=== PATIENT | male | born 1970 | race Caucasian/White ===

== ENCOUNTER 2017-03-27 12:15 | Inpatient (IN) | payer MEDICAID ==
[2017-03-27] MEDS ORDERED: NS 1000 ML 1,000 ML IV ONE ×2 (12:25→15:35)
--- NOTE | 2017-03-27 12:46 | DR.GENAD ---
HPI - PCP Primary Care Physician: MARBELLA - HPI Comment HPI Comment: PATIENT SAID HE FELL OFF THE BED. HE IS COMPLAING OF HEADACHE. WHILE PUTTING VENTURA IN PATIENT. SCOTUM SWOLLEN AND RED. RELATIVES SAID HE IS SLEEPY TODAY. NOT DRINKING FLUIDS AND EATING POORLY. FEVER NOTED AT HOME. - Complaint/Symptoms Chief Complaint Doctors Comments: AMS, FALLING AND WEAKNESS TIMES 2 DAYS. Chief Complaint:: PTS FAMILY C/O PT SLEEPING ALL THE TIME , AND FALLING DOWN AND SLOBBERING". - Nurses notes reviewed Nurses Notes Review: Yes - Source History Provided: Patient, Family Member - Mode of Arrival Mode of Arrival: Wheelchair - Timing Onset of Chief Complaint: 03/25/17 Came on: Suddenly - Duration Duration: Constant Duration: Days - Severity Severity: Moderate PMH - PMH Past Medical History: Yes Past Medical History: Hypertension, Seizures Past Surgical History: No - Family History History of Family Medical Conditions: Yes Family Medical History: Cancer - Social History Does patient currently use any type of tobacco product: No Have you used tobacco products in the last 12 months: No Type of Tobacco Use: None Does any household member use tobacco: No Alcohol Use: None Do you use any recreational Drugs:: No Lives With: Family Lives Where: Home - infectious screening In the last 2 months have you had wt loss of >10#?: NO Have you had fever, night sweats or hemotysis?: No Have you traveled outside the country in the last 6 months?: No Isolation: Standard ROS - Review of Systems Constitutional: Fever (AT HOME.), Weakness, Fatigue, Loss of Appetite. negative : Chills Eyes: No Symptoms Reported. negative: Eye Pain, Discharge ENTM: negative: Ear Pain, Nose Discharge, Nose Congestion, Throat Pain Respiratoy: Non-Productive Cough, Short of Breath, Wheezing. negative: Hemoptysis Gastrointestinal/Abdominal: No Symptoms Reported. negative: Abdominal Pain, Nausea, Vomiting Genitourinary: Pain (SCOTUM WITH REDNESS.), Other (DECRESE URINE OUT PUT.) Neurological: Headache, Weakness, Dizziness Musculoskeletal: Muscle Pain Integumentary: Change in Color Hematologic/Lymphatic: Easy Bruising Endocrine: No Symptoms Reported All Other Systems: Reviewed and Negative Unable to Obtain Due To: Altered mental status PE - Vital Signs Vitals: Temperature 97.6 F Pulse Rate 132 Respiratory Rate 20 Blood Pressure 117/70 O2 Sat by Pulse Oximetry 97 - General Limitations: Altered Mental Status General Appearance: Alert - Head Head Exam: Normal Inspection - Eyes Eye exam: Normal Appearance - ENT ENT Exam: Normal External Ear Exam External Ear Exam: Normal External Inspection TM/Canal Exam: Bilateral Normal Nose Exam: Normal Nose Exam Mouth Exam: Normal Inspection Throat Exam: Normal Inspection - Neck Neck Exam: Trachea Midline - Chest Chest Inspection: Symmetric Chest Wall Rise - Respiratory Respiratory Exam: Normal Lung Sounds Bilat Respiratory Exam: Bilateral Wheezing, Bilateral Rhonchi, Lower Wheezing, Lower Rhonchi - Cardiovascular Cardiovascular Exam: Regular Rate, Normal Rhythm, Normal Heart Sounds - Abdominal Exam Abdominal Exam: Normal Bowel Sounds, Soft. negative: Tenderness Abdominal Tenderness: Other (SCOTUM ENLARGE, RED AND TENDER.) - Extremities Extremities Exam: Normal Inspection - Back Back Exam: Paraspinal Tenderness - Neurologic Neurological Exam: Alert - Psychiatric Psychiatric Exam: Flat Affect - Skin Skin Exam: Warm, Dry MDM - Additional Information Additional Information Obtained From: Family - Differential Diagnosis Differential Diagnosis: SCOTAL CELLULITIS, HYDROCELE, AMS, PNEUMONIA, UTI Course - Treatment Treatment: SEE ORDERS. - Consultation Consultation Comments: DISCUSS PATIENT WITH DR. TYSON. HE WILL ADMIT PATIENT. - Education/Counseling Education/Counseling: Patient, Family, Education Educated On: Diagnosis ROR - Labs Reviewed Laboratory Results Reviewed?: Yes Result Diagrams: 03/28/17 04:45 03/28/17 04:45 Laboratory: WBC 24.2 X10^3/uL (3.6-10.0) H* 03/27/17 13:00 RBC 3.96 X10^6/uL (4.7-6.0) L 03/27/17 13:00 Hgb 12.7 g/dL (13.5-18.0) L 03/27/17 13:00 Hct 37.4 % (42.0-54.0) L 03/27/17 13:00 MCV 94.4 fL (80.0-100.0) 03/27/17 13:00 MCH 32.0 pg (27.0-34.0) 03/27/17 13:00 MCHC 33.9 g/dL (33.0-35.0) 03/27/17 13:00 RDW 13.6 % (11.6-16.5) 03/27/17 13:00 Plt Count 90 X10^3/uL (150.0-450.0) L 03/27/17 13:00 Plt Count Comment Decreased (ADEQUATE) 03/27/17 13:00 MPV 8.2 fL (7.4-11.0) 03/27/17 13:00 Neut % 71.8 % (42.0-75.0) 03/27/17 13:00 Lymph % 8.5 % (21.0-51.0) L 03/27/17 13:00 [place] % 19.5 % (0.0-13.0) H 03/27/17 13:00 Eos % 0.0 % (0.9-2.9) L 03/27/17 13:00 Baso % 0.2 % (0.2-1.0) 03/27/17 13:00 Neut # 17.4 x10^3/uL (2.2-4.8) H 03/27/17 13:00 Lymph # 2.0 X10^3/uL (1.3-2.9) 03/27/17 13:00 [place] # 4.7 x10^3/uL (0.3-0.8) H 03/27/17 13:00 Eos # 0.0 x10^3/uL (0.0-0.2) 03/27/17 13:00 Baso # 0.0 X10^3/uL (0.0-0.1) 03/27/17 13:00 Absolute Nucleated RBC 0.0 /100WBC 03/27/17 13:00 Total Counted 100 03/27/17 13:00 Neutrophils % (Manual) 64 % (39-76) 03/27/17 13:00 Band Neutrophils % 16 % (0-10) H 03/27/17 13:00 Lymphocytes % (Manual) 13 % (13-43) 03/27/17 13:00 Monocytes % (Manual) 7 % (4-9) 03/27/17 13:00 Atypical Lymphocytes Noted 03/27/17 13:00 Plt Morphology Comment Normal (NORMAL) 03/27/17 13:00 RBC Morphology Normal (NORMAL) 03/27/17 13:00 Sodium 143 mmol/L (136-145) 03/27/17 13:00 Corrected Sodium 143 mmol/L (136-145) 03/27/17 13:00 Potassium 3.9 mmol/L (3.5-5.1) 03/27/17 13:00 Chloride 108 mmol/L (98-107) H 03/27/17 13:00 Carbon Dioxide 24.5 mmol/L (21-32) 03/27/17 13:00 BUN 22 mg/dL (7-18) H 03/27/17 13:00 Creatinine 1.36 mg/dL (0.70-1.30) H 03/27/17 13:00 Est GFR (MDRD) Af Amer > 60 (>60) 03/27/17 13:00 Est GFR (MDRD) Non-Af > 60 (>60) 03/27/17 13:00 Glucose 113 mg/dL (65-99) H 03/27/17 13:00 Lactic Acid 1.8 mmol/L (0.4-2.0) 03/27/17 13:40 Calcium 9.1 mg/dL (8.5-10.1) 03/27/17 13:00 Corrected Calcium 10.2 mg/dL (8.5-10.1) H 03/27/17 13:00 Total Bilirubin 0.80 mg/dL (0.2-1.0) 03/27/17 13:00 AST 16 Units/L (15-37) 03/27/17 13:00 ALT 10 Units/L (12-78) L 03/27/17 13:00 Alkaline Phosphatase 58 Units/L (46-116) 03/27/17 13:00 Creatine Kinase 177 Units/L (39-308) 03/27/17 13:00 CK-MB (CK-2) 1.6 ng/mL (0-4.0) 03/27/17 13:00 CK/CKMB % Calc 0.9 % (<4) 03/27/17 13:00 Troponin I < 0.02 ng/mL (0-1.5) 03/27/17 13:00 Total Protein 6.9 g/dL (6.4-8.2) 03/27/17 13:00 Albumin 2.6 g/dL (3.4-5.0) L 03/27/17 13:00 Globulin 4.3 g/dL (2.5-4.5) 03/27/17 13:00 Albumin/Globulin Ratio 0.6 Ratio (1.1-2.1) L 03/27/17 13:00 Specimen Type Catherized urine 03/27/17 15:28 Urine Color [place] (YELLOW) 03/27/17 15:28 Urine Appearance Slightly hazy (CLEAR) 03/27/17 15:28 Urine RBC 50-55 /HPF (NEGATIVE) 03/27/17 15:28 Urine WBC 12-16 /HPF (NEGATIVE) 03/27/17 15:28 Ur Squamous Epith Cells Few /HPF (NEGATIVE) 03/27/17 15:28 Ur Renal Epithelial Cell Few /HPF (NEGATIVE) 03/27/17 15:28 Amorphous Sediment Trace /HPF (NEGATIVE) 03/27/17 15:28 Urine Bacteria Trace /HPF (Negative) 03/27/17 15:28 Hyaline Casts Moderate /LPF (NEGATIVE) 03/27/17 15:28 Micro UA Comment Unable to perform (-) 03/27/17 15:28 - XRAY XRAY Interpreted by: Radiologist XRAY Findings: REPORT DISCUSS WITH FAMILY AND PATIENT. - EKG Rhythm: NSR (EKG NOTED.) - Diagnosis Discharge Problem: UTI (urinary tract infection) Qualifiers: Urinary tract infection type: site unspecified Hematuria presence: without hematuria Qualified Code(s): N39.0 - Urinary tract infection, site not specified Altered mental status Qualifiers: Altered mental status type: transient alteration of awareness Qualified Code(s) : R40.4 - Transient alteration of awareness Cellulitis Qualifiers: Site of cellulitis: other site Qualified Code(s): L03.818 - Cellulitis of other sites Leukocytosis Qualifiers: Leukocytosis type: other Qualified Code(s): D72.828 - Other elevated white blood cell count - Discharge Plan Disposition: ADMITTED INPATIENT Condition: Stable - Follow ups/Referrals - Instructions
[2017-03-27] MEDS ORDERED: NS 1000 ML 1,000 ML ONE (12:54)
[2017-03-27 13:13] LABS: BASOPHILS % (AUTO) 0.2 % (0.2-1.0); HEMATOCRIT 37.4 % (42.0-54.0); HEMOGLOBIN 12.7 g/dL (13.5-18.0); LYMPHOCYTES % (AUTO) 8.5 % (21.0-51.0); MEAN CORPUSCULAR HGB CONC 33.9 g/dL (33.0-35.0); MEAN CORPUSCULAR VOLUME 94.4 fL (80.0-100.0); MEAN PLATELET VOLUME 8.2 fL (7.4-11.0); MONOCYTES # (AUTO) 4.7 x10^3/uL (0.3-0.8); MONOCYTES % (AUTO) 19.5 % (0.0-13.0); NEUTROPHILS # (AUTO) 17.4 x10^3/uL (2.2-4.8); NEUTROPHILS % (AUTO) 71.8 % (42.0-75.0); PLATELET COUNT 90 X10^3/uL (150.0-450.0); RED BLOOD COUNT 3.96 X10^6/uL (4.7-6.0); RED CELL DISTRIBUTION WIDTH 13.6 % (11.6-16.5)
[2017-03-27 13:14] LABS: WHITE BLOOD COUNT 24.2 X10^3/uL (3.6-10.0)
[2017-03-27 13:21] LABS: BLOOD UREA NITROGEN 22 mg/dL (7-18); CALCIUM 9.1 mg/dL (8.5-10.1); CARBON DIOXIDE 24.5 mmol/L (21-32); CHLORIDE 108 mmol/L (98-107); COR NA(FOR HYPERGLY) 143 mmol/L (136-145); CREATININE 1.36 mg/dL (0.70-1.30); GLUCOSE 113 mg/dL (65-99); SODIUM 143 mmol/L (136-145); TROPONIN I < 0.02 ng/mL (0-1.5); eGFR BLACK RACES > 60 (>60); eGFR NON BLACK RACES > 60 (>60)
[2017-03-27 13:26] LABS: ALANINE AMINOTRANSFERASE 10 Units/L (12-78); ALBUMIN 2.6 g/dL (3.4-5.0); ALKALINE PHOSPHATASE 58 Units/L (46-116); ASPARTATE AMINO TRANSFERASE 16 Units/L (15-37); CKMB % 0.9 % (<4); COR CA(FOR HYPOALB) 10.2 mg/dL (8.5-10.1); CREATINE KINASE 177 Units/L (39-308); CREATINE KINASE MB 1.6 ng/mL (0-4.0); TOTAL PROTEIN 6.9 g/dL (6.4-8.2)
[2017-03-27 13:27] LABS: BAND NEUTROPHILS % 16 % (0-10)
[2017-03-27 13:28] LABS: PLATELET MORPHOLOGY COMMENT NORMAL (NORMAL)
[2017-03-27] MEDS: NS 1000 ML 1,000 ML IV SCH ×2 (13:28→22:06)
--- NOTE | 2017-03-27 13:43 | CT ---
CT brain without contrast Indication: Altered mental status after fall Comparison: None available Technique: Multiple axial images of the brain were obtained from the skull base to the vertex without administr ation of IV contrast. Coronal and sagittal images were also provided. Radiation dose reduction techniques were performed utilizing adjustment for MA/kVP based on patient body size. Findings: No acute intraparenchymal hemorrhage or mass can be identified. No extra-axial fluid collections ar e seen. No alteration in the attenuation of the brain parenchyma can be identified to suggest acute or subacute ischemic change. The ventricular system is symmetric and nondilated. The extracranial structures are grossly unremarkable. IMPRESSION: 1. No acute intracranial process is identified. Reported By:
--- NOTE | 2017-03-27 13:43 | RAD ---
Chest, one view Indication: Altered mental status, fall Comparison: 05/03/2011 Findings: The cardiac and mediastinal contours within normal limits for technique and low lung volumes. There is decreased depth of inspiration with interstitial crowding, although no dense infil trate, large effusion, or pneumothorax is identified. No displaced fracture is seen. Impression: No evidence of acute cardiopulmonary disease Reported By:
[2017-03-27 15:58] LABS: AMORPHOUS SEDIMENT,UR TRACE /HPF (NEGATIVE); APPEARANCE,URINE SLIGHTLY HAZY (CLEAR); COLOR,URINE ORANGE (YELLOW); RBC,URINE 50-55 /HPF (NEGATIVE); SQUAMOUS EPITHELIAL CELL,UR FEW /HPF (NEGATIVE)
[2017-03-27 15:59] LABS: BACTERIA,URINE Trace /HPF (Negative); HYALINE CASTS, URINE MODERATE /LPF (NEGATIVE); RENAL EPITHELIAL CELLS,URINE FEW /HPF (NEGATIVE)
[2017-03-27] MEDS ORDERED: NS 50 ML IV + SPIKE MINIBAG* 50 ML IV ONE (17:02)
[2017-03-27] MEDS ORDERED: FORTAZ or TAZICEF INJ ONE (17:02)
[2017-03-27] MEDS: FORTAZ or TAZICEF INJ 1 GM in NS 50 ML IV + SPIKE MINIBAG* 50 ML IV SCH (17:12)
--- NOTE | 2017-03-27 17:35 | US ---
HISTORY: Scrotal swelling and pain Study: Testicular sonogram Comparison: None Technique: Multiple booth scale and Doppler images of the right and left testicles were obtained Findings: There is a complex fluid collection surrounding the left testicle and containing diffuse avascular i nternal echoes, likely representing a pyocele versus hematocele. The complex collection measures 6.4 cm x 4.6 cm x 5.9 cm in greatest dimensions. There is suggestion of scrotal wall thickening as wel l as parietal calcification or scrotolith. Therefore , this complex collection could also represent a chronic, complicated hydrocele. The left testicle measures 4.4 cm x 1.6 cm x 2.1 cm. The left test icle is normal in echotexture and demonstrates normal blood flow. No intratesticular mass is identif ied. The left epididymis is not identified. The right testicle is normal in echotexture. The right t esticle is also normal in size, measuring 3.7 cm x 1.8 cm x 1.9 cm. The right epididymis is unremark able. Normal vascularity of the right testicle is noted. IMPRESSION: 1. Large complex collection surrounding the left testicle a containing diffuse internal echoes as w ell as suggestion of left scrotal wall thickening and possible calcification as above. Possible diff erential considerations for this large collection include chronic complex hydrocele, pyocele, and he matocele. Hematoceles can be associated with trauma, torsion, and infarct. However, the left testicl e demonstrates normal echotexture and vascularity. The left epididymis cannot be identified. Reported By:
[2017-03-27] MEDS: DEPAKOTE ER PO SCH (21:08)
[2017-03-27] MEDS: KEPPRA TAB 500 MG PO SCH (21:08)
[2017-03-27] MEDS: TOPAMAX TAB 100 MG PO SCH (21:08)
[2017-03-28] MEDS: FORTAZ or TAZICEF INJ 1 GM in NS 50 ML IV + SPIKE MINIBAG* 50 ML IV SCH ×4 (00:22→21:39)
[2017-03-28] MEDS ORDERED: TYLENOL 325 MG TAB PO PRN (04:22)
[2017-03-28] MEDS: NS 1000 ML 1,000 ML IV SCH ×4 (05:36→21:39)
[2017-03-28 06:08] LABS: ALANINE AMINOTRANSFERASE 7 Units/L (12-78); ALBUMIN 1.9 g/dL (3.4-5.0); ALKALINE PHOSPHATASE 58 Units/L (46-116); ASPARTATE AMINO TRANSFERASE 13 Units/L (15-37); BLOOD UREA NITROGEN 14 mg/dL (7-18); CALCIUM 8.1 mg/dL (8.5-10.1); CARBON DIOXIDE 23.3 mmol/L (21-32); CHLORIDE 113 mmol/L (98-107); COR CA(FOR HYPOALB) 9.8 mg/dL (8.5-10.1); CREATININE 0.83 mg/dL (0.70-1.30); GLUCOSE 101 mg/dL (65-99); SODIUM 145 mmol/L (136-145); TOTAL PROTEIN 5.2 g/dL (6.4-8.2); eGFR BLACK RACES > 60 (>60); eGFR NON BLACK RACES > 60 (>60)
[2017-03-28 06:24] LABS: BASOPHILS % (AUTO) 0.2 % (0.2-1.0); EOSINOPHILS % (AUTO) 0.1 % (0.9-2.9); HEMATOCRIT 28.6 % (42.0-54.0); HEMOGLOBIN 10.1 g/dL (13.5-18.0); LYMPHOCYTES # (AUTO) 1.6 X10^3/uL (1.3-2.9); LYMPHOCYTES % (AUTO) 11.6 % (21.0-51.0); MEAN CORPUSCULAR HEMOGLOBIN 33.1 pg (27.0-34.0); MEAN CORPUSCULAR HGB CONC 35.2 g/dL (33.0-35.0); MEAN CORPUSCULAR VOLUME 94.1 fL (80.0-100.0); MEAN PLATELET VOLUME 8.5 fL (7.4-11.0); MONOCYTES # (AUTO) 1.7 x10^3/uL (0.3-0.8); NEUTROPHILS # (AUTO) 10.1 x10^3/uL (2.2-4.8); NEUTROPHILS % (AUTO) 75.1 % (42.0-75.0); PLATELET COUNT 62 X10^3/uL (150.0-450.0); RED BLOOD COUNT 3.04 X10^6/uL (4.7-6.0); RED CELL DISTRIBUTION WIDTH 13.8 % (11.6-16.5); WHITE BLOOD COUNT 13.4 X10^3/uL (3.6-10.0)
[2017-03-28] MEDS ORDERED: K-RIDER 10 MEQ/NS 100 ML 10 MEQ/100 ML BAG IV PRN (07:25)
[2017-03-28] MEDS ORDERED: POTASSIUM CHLORIDE LIQ 20 MEQ UDC PO PRN (07:25)
[2017-03-28] MEDS ORDERED: K-LYTE EFFERVESCENT PO PRN (07:25)
[2017-03-28] MEDS: SOLU-Medrol 40 MG VIAL IVP SCH ×3 (10:04→21:39)
[2017-03-28] MEDS: ALBUMIN HUMAN 25%- 100ML 100 ML IV SCH (10:04)
[2017-03-28] MEDS: KEPPRA TAB 500 MG PO SCH ×2 (10:06→21:38)
[2017-03-28] MEDS: FOLIC ACID TAB 1 MG PO SCH (10:06)
[2017-03-28] MEDS: TOPAMAX TAB 100 MG PO SCH ×2 (10:06→21:38)
[2017-03-28] MEDS: DEPAKOTE ER PO SCH ×2 (10:06→21:38)
[2017-03-28] MEDS: LEVAQUIN PREMIX IV 750 MG 750 MG/150 ML BAG IV SCH (10:07)
[2017-03-28] MEDS: EUCERIN TOP PRN (10:07)
[2017-03-28] MEDS: TEMOVATE SOLN TOP SCH ×2 (10:07→21:48)
[2017-03-28] MEDS: K-DUR TAB 20 MEQ PO PRN ×2 (10:12→14:04)
[2017-03-28] MEDS: TOPROL XL PO SCH (10:23)
[2017-03-28] MEDS ORDERED: ZOFRAN INJ 4 MG VIAL IVP PRN (11:18)
[2017-03-28 12:47] VITALS: BMI 25.8
--- NOTE | 2017-03-28 16:03 | DR.H&P ---
H&P - History & Physical for Day of: H&P Date: 03/27/17 - Chief Complaint Chief Complaint: FALL, HEADACHE, SCROTAL EDEMA - Allergies Allergies/Adverse Reactions: Allergies Allergy/AdvReac Type Severity Reaction Status Date / Time Aspirin Allergy Verified 07/28/12 13:16 Caffeine Allergy Verified 07/28/12 13:16 - History of Present Illness History of Present Illness: THIS IS A 46 YEAR OLD MALE, WHO IS A PATIENT OF OURS. HE PRESENTS TO THE EMERGENCY ROOM WITH COMPLAINTS OF A FALL AT HOME, HEADACHE, AMS, AND GENERALIZED WEAKNESS. FAMILY AT BEDSIDE AND REPORTS PATIENT HAS BEEN VERY DROWSY AND SLEEPING MORE THAN USUAL. FAMILY REPORTS PATIENT FELL OFF OF A BED AT HOME AND IS NOW COMPLAINING OF A HEADACHE. FAMILY REPORTS PATIENT HAS NOT BEEN EATING OR DRINKING WELL AT HOME. UPON INSERTION OF VENTURA CATHETER, SWELLING AND EDEMA IS NOTED TO SCROTUM. FAMILY REPORTS FEVER AT HOME. LABS AND CT OBTAINED. CBC WNL EXCEPT: WBC 24.2, H/H 12.7/37.4, PLT COUNT 90. CMP WNL EXCEPT: CHL 108, BUN/CREAT 22/1.36, GLUCOSE 113, ALBUMIN 2.6. A URINALYSIS WAS OBTAINED; HOWEVER, A CULTURE WAS UNABLE TO BE PERFORMED DUE TO MEDICATION PATIENT TAKING AT HOME. INFLUENZA NEGATIVE. BRAIN CT REPORTS NO ACUTE INTRACRANIAL PROCESS. CHEST XRAY REPORTS NO EVIDENCE OF ACUTE CARDIOPULMONARY DISEASE. TESTICULAR ULTRASOUND REPORTS LARGE COMPLEX COLLECTION SURROUNDING THE LEFT TESTICLE CONTAINING DIFFUSE INTERNAL ECHOES WELL SUGGESTION OF LEFT SCROTAL WALL THICKENING AND POSSIBLE CALCIFICATION; POSSIBILITY OF CHRONIC COMPLEX HYDROCELE, PYOCELE, OR HEAMTOCELE. BLOOD AND URINE CULTURES OBTAINED. WE WILL ADMIT PATIENT FOR FURTHER TREATMENT AND EVALUATION. WE WILL START IV FORTAZ, IV FLUIDS, AND CONTINUE TO MONITOR. - Past Medical History Past Medical History: Anxiety, GERD, Hypertension, Seizures Additional Medical History: Vision Deficit, Urinary Tract Infections, Back Pain , Mood Disorders - Past Surgical History Surgical History: Unknown (Per Human Services Worker) - Family History Family Medical History: Cancer, Coronary Artery Disease - Social History Does patient currently use any type of tobacco product: No Have you used tobacco products in the last 12 months: No Type of Tobacco Use: None Does any household member use tobacco: No Alcohol Use: None Drug Use: None - Medications Home Medications: Divalproex Sodium [Divalproex Sodium ER] 3 tab PO BID 07/28/12 Levetiracetam 2 tab PO BID 07/28/12 Topiramate [Topiragen] 1 tab PO BID 07/28/12 Folic Acid [FOLIC ACID TAB 1 MG *] 2 mg PO DAILY 03/27/17 Metoprolol Succinate Ext Rel [TOPROL XL 25 MG *] 25 mg PO DAILY 03/27/17 - Review of Systems Constitutional: Fever, Weakness, Malaise Eyes: No Symptoms Reported. denies: Pain, Vision Change, Conjunctivae Inflammation, Eyelid Inflammation, Redness ENT: No Symptoms Reported. denies: Ear Pain, Ear Discharge, Nose Pain, Nose Discharge, Nose Congestion, Mouth Pain, Mouth Swelling, Throat Pain, Throat Swelling Respiratory: No Symptoms Reported. denies: Cough, Shortness of Breath, Hemoptysis, SOB with Excertion, Pleuritic Pain, Sputum, Wheezing Cardiovascular: No Symptoms Reported. denies: Palpitations, Orthopnea, Paroxysmal Noc. Dyspnea, Edema, Light Headedness Gastrointestinal: No Symptoms Reported. denies: Nausea, Vomiting, Abdominal Pain, Diarrhea, Constipation, Melena, Hematochezia Genitourinary: Dysuria, Frequency. denies: Hematuria Musculoskeletal: Other (Generalized Muscle Weakness). denies: Shoulder Pain, Arm Pain, Back Pain, Hand Pain, Leg Pain, Foot Pain Skin: Wound (Scrotal edema). denies: Lesions, Jaundice, Bruising Neurological: Weakness, Confusion, Other (Headache) - Physical Exam Vital Signs: Temperature 96.6 F Pulse Rate [Apical] 66 Pulse Rate [Right Radial] 102 Respiratory Rate 20 Blood Pressure [Left Arm] 86/54 Blood Pressure [Right Arm] 111/57 O2 Sat by Pulse Oximetry 94 Oriented: Person Eyes: Normal. negative: Blurred Vision, Diplopia, Discharge, Pain, Redness, Photophobia Ear: Normal. negative: Swelling, Ecchymosis, Abrasion, Laceration Nose: Normal. negative: Injected, Discharge, Blood Throat: Normal. negative: Tonsillar Hypertrophy, Red, Exudate Respiratory: Clear Throughout Cardiovascular: Normal. negative: Murmur, Edema : Dysuria, Frequency, Testicular Pain, Other ([place]). negative: Hematuria Auscultation: Bowel Sounds: Decreased. negative: Bruit Palpation: Normal. negative: Spleen Enlarged, Liver Enlarged, Mass Pulsatile Tenderness: Normal. negative: Rebound, Guarding, Rigidity Skin: Decreased [place]. negative: Wound, Bruising, Ecchymosis Musculoskeletal: Instability Psychiatric: Other (Confusion) Mood Description: Calm Speech Pattern: Clear, Inappropriate - Assessment/Plan (1) Cellulitis of scrotum Status: Acute Plan: ADMIT PATIENT, START IV FORTAZ, CONTINUE VENTURA CATHETER, MONITOR CELLULITIS. (2) Altered mental status Qualifiers: Altered mental status type: transient alteration of awareness Coma depth: C Coma timing: C Qualified Code(s): R40.4 - Transient alteration of awareness Status: Acute Plan: START IV FLUIDS, CONTINUE TO MONITOR. (3) Leukocytosis Qualifiers: Leukocytosis type: other Qualified Code(s): D72.828 - Other elevated white blood cell count Status: Acute Plan: START IV FLUIDS, IV FORTAZ, MONITOR. (4) UTI (urinary tract infection) Qualifiers: Urinary tract infection type: site unspecified Hematuria presence: without hematuria Indwelling urinary catheter type: I Encounter type: E Qualified Code(s): N39.0 - Urinary tract infection, site not specified Status: Acute Plan: ABOVE. (5) Hypertension Qualifiers: Hypertension type: essential hypertension Qualified Code(s): I10 - Essential (primary) hypertension Status: Acute (6) Seizures Status: Chronic (7) GERD (gastroesophageal reflux disease) Qualifiers: Esophagitis presence: esophagitis presence not specified Qualified Code(s) : K21.9 - Gastro-esophageal reflux disease without esophagitis Status: Chronic
--- NOTE | 2017-03-28 16:31 | PCM.PROG ---
Progress Note - Progress Note for Day of Date: 03/28/17 - Subjective Subjective: PATIENT CONTINUES WITH SCROTAL CELLULITIS THIS MORNING. SCROTUM IS NOTED WITH WARMTH, ERYTHEMA, AND EDEMA. PATIENT REPORTS PAIN TO AREA. FAMILY MEMBER AT BEDSIDE. 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 CBC WNL EXCEPT: WBC IMPROVED FROM 24.2 TO 13.4, H/H 10.1/28.6, PLT COUNT 62. CMP WNL EXCEPT: POTASSIUM 3.2, CHL 113, GLUCOSE 101, CALCIUM 8.1, TOT PROTEIN 5.2, ALBUMIN 1.9. WE WILL START ALBUMIN IV, LEVAQUIN, SOLUMEDROL, TEMOVATE, AND EUCERIN. WE WILL CONTINUE TO MONITOR CELLULITIS AND FOLLOW UP IN AM WITH LABS. - Past Medical Family Social History Past Med/Fam/Surg Hx: No changes since H&P Allergies: Allergies Aspirin Allergy (Verified 07/28/12 13:16) Caffeine Allergy (Verified 07/28/12 13:16) - Review of Systems ROS: No change since H&P - Vital Signs and I&O's Vital Signs: Temperature 97.5 F Pulse Rate [Apical] 66 Pulse Rate [Right Radial] 62 Respiratory Rate 20 Blood Pressure [Left Arm] 86/54 Blood Pressure [Right Arm] 97/54 O2 Sat by Pulse Oximetry 94 Intake and Output: Intake & Output 03/26/17 03/27/17 03/28/17 03/29/17 11:59 11:59 11:59 11:59 Intake Total 1240 480 Output Total 900 1200 Balance 340 -720 - Physical Exam Oriented: Person Eyes: Normal. negative: Blurred Vision, Diplopia, Discharge, Pain, Redness, Photophobia Ear: Normal. negative: Swelling, Ecchymosis, Abrasion, Laceration Nose: Normal. negative: Injected, Discharge, Blood Throat: Normal. negative: Tonsillar Hypertrophy, Red, Exudate Cardiovascular: Normal. negative: Murmur, Edema : Dysuria, Frequency, Testicular Pain, Other ([place]). negative: Hematuria Auscultation: Bowel Sounds: Decreased. negative: Bruit Palpation: Normal. negative: Spleen Enlarged, Liver Enlarged, Mass Pulsatile Tenderness: Normal. negative: Rebound, Guarding, Rigidity Skin: Decreased Turgur. negative: Wound, Bruising, Ecchymosis Musculoskeletal: Instability Psychiatric: Other (Confusion) Mood Description: Calm Speech Pattern: Clear, Inappropriate - Laboratory and Diagnostics Result Diagrams: 03/28/17 04:45 03/28/17 12:30 Labs: Laboratory WBC 13.4 X10^3/uL (3.6-10.0) H 03/28/17 04:45 RBC 3.04 X10^6/uL (4.7-6.0) L 03/28/17 04:45 Hgb 10.1 g/dL (13.5-18.0) L 03/28/17 04:45 Hct 28.6 % (42.0-54.0) L 03/28/17 04:45 MCV 94.1 fL (80.0-100.0) 03/28/17 04:45 MCH 33.1 pg (27.0-34.0) 03/28/17 04:45 MCHC 35.2 g/dL (33.0-35.0) H 03/28/17 04:45 RDW 13.8 % (11.6-16.5) 03/28/17 04:45 Plt Count 62 X10^3/uL (150.0-450.0) L 03/28/17 04:45 Plt Count Comment Decreased (ADEQUATE) 03/27/17 13:00 MPV 8.5 fL (7.4-11.0) 03/28/17 04:45 Neut % 75.1 % (42.0-75.0) H 03/28/17 04:45 Lymph % 11.6 % (21.0-51.0) L 03/28/17 04:45 [place] % 13.0 % (0.0-13.0) 03/28/17 04:45 Eos % 0.1 % (0.9-2.9) L 03/28/17 04:45 Baso % 0.2 % (0.2-1.0) 03/28/17 04:45 Neut # 10.1 x10^3/uL (2.2-4.8) H 03/28/17 04:45 Lymph # 1.6 X10^3/uL (1.3-2.9) 03/28/17 04:45 [place] # 1.7 x10^3/uL (0.3-0.8) H 03/28/17 04:45 Eos # 0.0 x10^3/uL (0.0-0.2) 03/28/17 04:45 Baso # 0.0 X10^3/uL (0.0-0.1) 03/28/17 04:45 Absolute Nucleated RBC 0.0 /100WBC 03/28/17 04:45 Total Counted 100 03/27/17 13:00 Neutrophils % (Manual) 64 % (39-76) 03/27/17 13:00 Band Neutrophils % 16 % (0-10) H 03/27/17 13:00 Lymphocytes % (Manual) 13 % (13-43) 03/27/17 13:00 Monocytes % (Manual) 7 % (4-9) 03/27/17 13:00 Atypical Lymphocytes Noted 03/27/17 13:00 Plt Morphology Comment Normal (NORMAL) 03/27/17 13:00 RBC Morphology Normal (NORMAL) 03/27/17 13:00 Sodium 145 mmol/L (136-145) 03/28/17 04:45 Corrected Sodium TNP 03/28/17 04:45 Potassium 3.4 mmol/L (3.5-5.1) L 03/28/17 12:30 Chloride 113 mmol/L (98-107) H 03/28/17 04:45 Carbon Dioxide 23.3 mmol/L (21-32) 03/28/17 04:45 BUN 14 mg/dL (7-18) 03/28/17 04:45 Creatinine 0.83 mg/dL (0.70-1.30) 03/28/17 04:45 Est GFR (MDRD) Af Amer > 60 (>60) 03/28/17 04:45 Est GFR (MDRD) Non-Af > 60 (>60) 03/28/17 04:45 Glucose 101 mg/dL (65-99) H 03/28/17 04:45 Lactic Acid 1.8 mmol/L (0.4-2.0) 03/27/17 13:40 Calcium 8.1 mg/dL (8.5-10.1) L 03/28/17 04:45 Corrected Calcium 9.8 mg/dL (8.5-10.1) 03/28/17 04:45 Total Bilirubin 0.30 mg/dL (0.2-1.0) 03/28/17 04:45 AST 13 Units/L (15-37) L 03/28/17 04:45 ALT 7 Units/L (12-78) L 03/28/17 04:45 Alkaline Phosphatase 58 Units/L (46-116) 03/28/17 04:45 Creatine Kinase 177 Units/L (39-308) 03/27/17 13:00 CK-MB (CK-2) 1.6 ng/mL (0-4.0) 03/27/17 13:00 CK/CKMB % Calc 0.9 % (<4) 03/27/17 13:00 Troponin I < 0.02 ng/mL (0-1.5) 03/27/17 13:00 Total Protein 5.2 g/dL (6.4-8.2) L 03/28/17 04:45 Albumin 1.9 g/dL (3.4-5.0) L 03/28/17 04:45 Globulin 3.3 g/dL (2.5-4.5) 03/28/17 04:45 Albumin/Globulin Ratio 0.6 Ratio (1.1-2.1) L 03/28/17 04:45 Specimen Type Catherized urine 03/27/17 15:28 Urine Color [place] (YELLOW) 03/27/17 15:28 Urine Appearance Slightly hazy (CLEAR) 03/27/17 15:28 Urine RBC 50-55 /HPF (NEGATIVE) 03/27/17 15:28 Urine WBC 12-16 /HPF (NEGATIVE) 03/27/17 15:28 Ur Squamous Epith Cells Few /HPF (NEGATIVE) 03/27/17 15:28 Ur Renal Epithelial Cell Few /HPF (NEGATIVE) 03/27/17 15:28 Amorphous Sediment Trace /HPF (NEGATIVE) 03/27/17 15:28 Urine Bacteria Trace /HPF (Negative) 03/27/17 15:28 Hyaline Casts Moderate /LPF (NEGATIVE) 03/27/17 15:28 Micro UA Comment Unable to perform (-) 03/27/17 15:28 Influenza A (H1N1) PCR Not detected (NOT DETECT) 03/27/17 14:30 Influenza Type A (PCR) Negative (NEGATIVE) 03/27/17 14:30 Influenza Type B (PCR) Negative (NEGATIVE) 03/27/17 14:30 - Plan (1) Hematocele Status: Acute Plan: START IV LEVAQUIN, SOLUMEDROL, CONTINUE TO MONITOR. (2) Cellulitis of scrotum Status: Acute Plan: CONTINUE IV FORTAZ, CONTINUE VENTURA CATHETER, MONITOR CELLULITIS. (3) Altered mental status Status: Acute Qualifiers: Altered mental status type: transient alteration of awareness Coma depth: C Coma timing: C Qualified Code(s): R40.4 - Transient alteration of awareness Plan: CONTINUE IV FLUIDS, CONTINUE TO MONITOR. (4) Leukocytosis Status: Acute Qualifiers: Leukocytosis type: other Qualified Code(s): D72.828 - Other elevated white blood cell count Plan: CONTINUE IV FLUIDS, IV FORTAZ, MONITOR. (5) UTI (urinary tract infection) Status: Acute Qualifiers: Urinary tract infection type: site unspecified Hematuria presence: without hematuria Indwelling urinary catheter type: I Encounter type: E Qualified Code(s): N39.0 - Urinary tract infection, site not specified Plan: ABOVE. (6) Hypertension Status: Chronic Qualifiers: Hypertension type: essential hypertension Qualified Code(s): I10 - Essential (primary) hypertension (7) Seizures Status: Chronic (8) GERD (gastroesophageal reflux disease) Status: Chronic Qualifiers: Esophagitis presence: esophagitis presence not specified Qualified Code(s) : K21.9 - Gastro-esophageal reflux disease without esophagitis
[2017-03-29] MEDS: FORTAZ or TAZICEF INJ 1 GM in NS 50 ML IV + SPIKE MINIBAG* 50 ML IV SCH ×3 (05:48→21:53)
[2017-03-29] MEDS: SOLU-Medrol 40 MG VIAL IVP SCH ×3 (05:48→21:54)
[2017-03-29] MEDS: NS 1000 ML 1,000 ML IV SCH ×3 (05:54→21:54)
[2017-03-29 07:00] LABS: ALANINE AMINOTRANSFERASE 10 Units/L (12-78); ALBUMIN 2.1 g/dL (3.4-5.0); ALKALINE PHOSPHATASE 55 Units/L (46-116); ASPARTATE AMINO TRANSFERASE 13 Units/L (15-37); BLOOD UREA NITROGEN 9 mg/dL (7-18); CALCIUM 8.7 mg/dL (8.5-10.1); COR CA(FOR HYPOALB) 10.2 mg/dL (8.5-10.1); COR NA(FOR HYPERGLY) 149 mmol/L (136-145); CREATININE 0.74 mg/dL (0.70-1.30); GLUCOSE 119 mg/dL (65-99); SODIUM 149 mmol/L (136-145); TOTAL PROTEIN 5.5 g/dL (6.4-8.2); eGFR BLACK RACES > 60 (>60); eGFR NON BLACK RACES > 60 (>60)
[2017-03-29 07:01] LABS: BASOPHILS % (AUTO) 0.1 % (0.2-1.0); HEMATOCRIT 29.6 % (42.0-54.0); HEMOGLOBIN 10.4 g/dL (13.5-18.0); LYMPHOCYTES # (AUTO) 0.9 X10^3/uL (1.3-2.9); LYMPHOCYTES % (AUTO) 8.6 % (21.0-51.0); MEAN CORPUSCULAR HEMOGLOBIN 33.2 pg (27.0-34.0); MEAN CORPUSCULAR HGB CONC 35.1 g/dL (33.0-35.0); MEAN CORPUSCULAR VOLUME 94.4 fL (80.0-100.0); MEAN PLATELET VOLUME 8.5 fL (7.4-11.0); MONOCYTES # (AUTO) 0.5 x10^3/uL (0.3-0.8); MONOCYTES % (AUTO) 5.1 % (0.0-13.0); NEUTROPHILS # (AUTO) 9.2 x10^3/uL (2.2-4.8); NEUTROPHILS % (AUTO) 86.2 % (42.0-75.0); PLATELET COUNT 61 X10^3/uL (150.0-450.0); RED BLOOD COUNT 3.14 X10^6/uL (4.7-6.0); RED CELL DISTRIBUTION WIDTH 14.1 % (11.6-16.5); WHITE BLOOD COUNT 10.6 X10^3/uL (3.6-10.0)
[2017-03-29 07:12] LABS: CHLORIDE 117 mmol/L (98-107)
[2017-03-29 08:42] LABS: BAND NEUTROPHILS % 10 % (0-10); PLATELET MORPHOLOGY COMMENT NORMAL (NORMAL)
[2017-03-29] MEDS: ALBUMIN HUMAN 25%- 100ML 100 ML IV SCH (09:25)
[2017-03-29] MEDS: DEPAKOTE ER PO SCH ×2 (09:26→21:52)
[2017-03-29] MEDS: FOLIC ACID TAB 1 MG PO SCH (09:26)
[2017-03-29] MEDS: TOPAMAX TAB 100 MG PO SCH ×2 (09:26→21:53)
[2017-03-29] MEDS: LEVAQUIN PREMIX IV 750 MG 750 MG/150 ML BAG IV SCH (09:26)
[2017-03-29] MEDS: KEPPRA TAB 500 MG PO SCH ×2 (09:26→21:52)
[2017-03-29] MEDS: TEMOVATE SOLN TOP SCH ×2 (09:43→22:09)
[2017-03-29] MEDS: EUCERIN TOP PRN ×2 (09:43→22:09)
[2017-03-29] MEDS: TOPROL XL PO SCH (09:44)
--- NOTE | 2017-03-29 17:20 | PCM.PROG ---
Progress Note - Progress Note for Day of Date: 03/29/17 - Subjective Subjective: PATIENT CONTINUES WITH SCROTAL CELLULITIS THIS MORNING. SCROTUM IS NOTED WITH WARMTH, ERYTHEMA, AND EDEMA. PATIENT REPORTS PAIN TO AREA. FAMILY MEMBER AT BEDSIDE. PATIENT CONTINUES ON IV FORTAZ AND LEVAQUIN FOR SCROTAL CELLULITIS. FINAL URINE CULTURE REPORTS E-COLI WHICH IS SENSITIVE TO FORTAZ. CBC WNL EXCEPT: WBC 10.6, H/H 10.4/29.6, PLT COUNT 61. CMP WNL EXCEPT: SODIUM 149, CHL 117, GLUCOSE 119, TOT PROTEIN 5.5, ALBUMIN 2.1. WE WILL CONTINUE ALBUMIN IV, LEVAQUIN, SOLUMEDROL, TEMOVATE, AND EUCERIN. WE WILL CONTINUE TO MONITOR CELLULITIS AND FOLLOW UP IN AM WITH LABS. - Past Medical Family Social History Past Med/Fam/Surg Hx: No changes since H&P Allergies: Allergies Aspirin Allergy (Verified 07/28/12 13:16) Caffeine Allergy (Verified 07/28/12 13:16) - Review of Systems ROS: No change since H&P - Vital Signs and I&O's Vital Signs: Temperature 97.7 F Pulse Rate [Apical] 44 Pulse Rate [Right Radial] 54 Respiratory Rate 18 Blood Pressure [Left Arm] 86/54 Blood Pressure [Right Arm] 115/72 O2 Sat by Pulse Oximetry 94 Intake and Output: Intake & Output 03/27/17 03/28/17 03/29/17 03/30/17 11:59 11:59 11:59 11:59 Intake Total 1240 1480 1700 Output Total 900 2450 900 Balance 340 -970 800 - Physical Exam Oriented: Person Eyes: Normal. negative: Blurred Vision, Diplopia, Discharge, Pain, Redness, Photophobia Ear: Normal. negative: Swelling, Ecchymosis, Abrasion, Laceration Nose: Normal. negative: Injected, Discharge, Blood Throat: Normal. negative: Tonsillar Hypertrophy, Red, Exudate Respiratory: Normal Cardiovascular: Normal. negative: Murmur, Edema : Dysuria, Frequency, Testicular Pain (Scrotal Cellulitis), Other ([place]). negative: Hematuria Auscultation: Bowel Sounds: Decreased. negative: Bruit Tenderness: Normal. negative: Rebound, Guarding, Rigidity Skin: Decreased Turgur. negative: Wound, Bruising, Ecchymosis Musculoskeletal: Instability Psychiatric: Other (Confusion) Mood Description: Calm Speech Pattern: Unclear - Laboratory and Diagnostics Result Diagrams: 03/29/17 05:04 03/29/17 05:04 Labs: Laboratory WBC 10.6 X10^3/uL (3.6-10.0) H 03/29/17 05:04 RBC 3.14 X10^6/uL (4.7-6.0) L 03/29/17 05:04 Hgb 10.4 g/dL (13.5-18.0) L 03/29/17 05:04 Hct 29.6 % (42.0-54.0) L 03/29/17 05:04 MCV 94.4 fL (80.0-100.0) 03/29/17 05:04 MCH 33.2 pg (27.0-34.0) 03/29/17 05:04 MCHC 35.1 g/dL (33.0-35.0) H 03/29/17 05:04 RDW 14.1 % (11.6-16.5) 03/29/17 05:04 Plt Count 61 X10^3/uL (150.0-450.0) L 03/29/17 05:04 Plt Count Comment Adequate (ADEQUATE) 03/29/17 05:04 MPV 8.5 fL (7.4-11.0) 03/29/17 05:04 Neut % 86.2 % (42.0-75.0) H 03/29/17 05:04 Lymph % 8.6 % (21.0-51.0) L 03/29/17 05:04 [place] % 5.1 % (0.0-13.0) 03/29/17 05:04 Eos % 0.0 % (0.9-2.9) L 03/29/17 05:04 Baso % 0.1 % (0.2-1.0) L 03/29/17 05:04 Neut # 9.2 x10^3/uL (2.2-4.8) H 03/29/17 05:04 Lymph # 0.9 X10^3/uL (1.3-2.9) L 03/29/17 05:04 [place] # 0.5 x10^3/uL (0.3-0.8) 03/29/17 05:04 Eos # 0.0 x10^3/uL (0.0-0.2) 03/29/17 05:04 Baso # 0.0 X10^3/uL (0.0-0.1) 03/29/17 05:04 Absolute Nucleated RBC 0.0 /100WBC 03/29/17 05:04 Total Counted 100 03/29/17 05:04 Neutrophils % (Manual) 83 % (39-76) H 03/29/17 05:04 Band Neutrophils % 10 % (0-10) 03/29/17 05:04 Lymphocytes % (Manual) 6 % (13-43) L 03/29/17 05:04 Monocytes % (Manual) 1 % (4-9) L 03/29/17 05:04 Atypical Lymphocytes Noted 03/27/17 13:00 Plt Morphology Comment Normal (NORMAL) 03/29/17 05:04 RBC Morphology Normal (NORMAL) 03/29/17 05:04 Sodium 149 mmol/L (136-145) H 03/29/17 05:04 Corrected Sodium 149 mmol/L (136-145) H 03/29/17 05:04 Potassium 3.9 mmol/L (3.5-5.1) 03/29/17 05:04 Chloride 117 mmol/L (98-107) H* 03/29/17 05:04 Carbon Dioxide 21.0 mmol/L (21-32) 03/29/17 05:04 BUN 9 mg/dL (7-18) 03/29/17 05:04 Creatinine 0.74 mg/dL (0.70-1.30) 03/29/17 05:04 Est GFR (MDRD) Af Amer > 60 (>60) 03/29/17 05:04 Est GFR (MDRD) Non-Af > 60 (>60) 03/29/17 05:04 Glucose 119 mg/dL (65-99) H 03/29/17 05:04 Lactic Acid 1.8 mmol/L (0.4-2.0) 03/27/17 13:40 Calcium 8.7 mg/dL (8.5-10.1) 03/29/17 05:04 Corrected Calcium 10.2 mg/dL (8.5-10.1) H 03/29/17 05:04 Total Bilirubin 0.20 mg/dL (0.2-1.0) 03/29/17 05:04 AST 13 Units/L (15-37) L 03/29/17 05:04 ALT 10 Units/L (12-78) L 03/29/17 05:04 Alkaline Phosphatase 55 Units/L (46-116) 03/29/17 05:04 Creatine Kinase 177 Units/L (39-308) 03/27/17 13:00 CK-MB (CK-2) 1.6 ng/mL (0-4.0) 03/27/17 13:00 CK/CKMB % Calc 0.9 % (<4) 03/27/17 13:00 Troponin I < 0.02 ng/mL (0-1.5) 03/27/17 13:00 Total Protein 5.5 g/dL (6.4-8.2) L 03/29/17 05:04 Albumin 2.1 g/dL (3.4-5.0) L 03/29/17 05:04 Globulin 3.4 g/dL (2.5-4.5) 03/29/17 05:04 Albumin/Globulin Ratio 0.6 Ratio (1.1-2.1) L 03/29/17 05:04 Specimen Type Catherized urine 03/27/17 15:28 Urine Color [place] (YELLOW) 03/27/17 15:28 Urine Appearance Slightly hazy (CLEAR) 03/27/17 15:28 Urine RBC 50-55 /HPF (NEGATIVE) 03/27/17 15:28 Urine WBC 12-16 /HPF (NEGATIVE) 03/27/17 15:28 Ur Squamous Epith Cells Few /HPF (NEGATIVE) 03/27/17 15:28 Ur Renal Epithelial Cell Few /HPF (NEGATIVE) 03/27/17 15:28 Amorphous Sediment Trace /HPF (NEGATIVE) 03/27/17 15:28 Urine Bacteria Trace /HPF (Negative) 03/27/17 15:28 Hyaline Casts Moderate /LPF (NEGATIVE) 03/27/17 15:28 Micro UA Comment Unable to perform (-) 03/27/17 15:28 Influenza A (H1N1) PCR Not detected (NOT DETECT) 03/27/17 14:30 Influenza Type A (PCR) Negative (NEGATIVE) 03/27/17 14:30 Influenza Type B (PCR) Negative (NEGATIVE) 03/27/17 14:30 - Plan (1) Hematocele Status: Acute Plan: CONTINUE IV LEVAQUIN, FORTAZ, SOLUMEDROL, CONTINUE TO MONITOR. (2) Cellulitis of scrotum Status: Acute Plan: CONTINUE IV FORTAZ, LEVAQUIN, CONTINUE VENTURA CATHETER, MONITOR CELLULITIS. (3) Altered mental status Status: Acute Qualifiers: Altered mental status type: transient alteration of awareness Coma depth: C Coma timing: C Qualified Code(s): R40.4 - Transient alteration of awareness Plan: CONTINUE IV FLUIDS, CONTINUE TO MONITOR. (4) Leukocytosis Status: Acute Qualifiers: Leukocytosis type: other Qualified Code(s): D72.828 - Other elevated white blood cell count Plan: CONTINUE IV FLUIDS, IV FORTAZ, MONITOR. (5) E. coli UTI Status: Acute Plan: CONTINUE FORTAZ, MONITOR. (6) UTI (urinary tract infection) Status: Acute Qualifiers: Urinary tract infection type: site unspecified Hematuria presence: without hematuria Indwelling urinary catheter type: I Encounter type: E Qualified Code(s): N39.0 - Urinary tract infection, site not specified Plan: ABOVE. (7) Hypertension Status: Chronic Qualifiers: Hypertension type: essential hypertension Qualified Code(s): I10 - Essential (primary) hypertension (8) Seizures Status: Chronic (9) GERD (gastroesophageal reflux disease) Status: Chronic Qualifiers: Esophagitis presence: esophagitis presence not specified Qualified Code(s) : K21.9 - Gastro-esophageal reflux disease without esophagitis
[2017-03-29] MEDS: NYSTATIN POWDER TOP SCH ×2 (17:26→22:08)
[2017-03-30] MEDS: SOLU-Medrol 40 MG VIAL IVP SCH ×3 (05:56→21:31)
[2017-03-30] MEDS: FORTAZ or TAZICEF INJ 1 GM in NS 50 ML IV + SPIKE MINIBAG* 50 ML IV SCH ×3 (05:57→21:30)
[2017-03-30] MEDS: NS 1000 ML 1,000 ML IV SCH ×3 (06:04→21:42)
[2017-03-30 06:12] LABS: ALBUMIN 2.1 g/dL (3.4-5.0); BASOPHILS % (AUTO) 0.4 % (0.2-1.0); HEMATOCRIT 28.9 % (42.0-54.0); LYMPHOCYTES # (AUTO) 1.2 X10^3/uL (1.3-2.9); LYMPHOCYTES % (AUTO) 11.6 % (21.0-51.0); MEAN CORPUSCULAR HEMOGLOBIN 33.1 pg (27.0-34.0); MEAN CORPUSCULAR HGB CONC 34.6 g/dL (33.0-35.0); MEAN CORPUSCULAR VOLUME 95.6 fL (80.0-100.0); MEAN PLATELET VOLUME 8.9 fL (7.4-11.0); MONOCYTES # (AUTO) 0.6 x10^3/uL (0.3-0.8); MONOCYTES % (AUTO) 5.4 % (0.0-13.0); NEUTROPHILS # (AUTO) 8.5 x10^3/uL (2.2-4.8); NEUTROPHILS % (AUTO) 82.6 % (42.0-75.0); PLATELET COUNT 68 X10^3/uL (150.0-450.0); RED BLOOD COUNT 3.03 X10^6/uL (4.7-6.0); RED CELL DISTRIBUTION WIDTH 14.3 % (11.6-16.5); WHITE BLOOD COUNT 10.3 X10^3/uL (3.6-10.0); eGFR BLACK RACES > 60 (>60); eGFR NON BLACK RACES > 60 (>60)
[2017-03-30 06:57] LABS: ALANINE AMINOTRANSFERASE 9 Units/L (12-78); ALKALINE PHOSPHATASE 56 Units/L (46-116); ASPARTATE AMINO TRANSFERASE 11 Units/L (15-37); BLOOD UREA NITROGEN 8 mg/dL (7-18); CALCIUM 8.2 mg/dL (8.5-10.1); COR CA(FOR HYPOALB) 9.7 mg/dL (8.5-10.1); CREATININE 0.78 mg/dL (0.70-1.30); GLUCOSE 125 mg/dL (65-99)
[2017-03-30 07:24] LABS: COR NA(FOR HYPERGLY) 148 mmol/L (136-145); SODIUM 147 mmol/L (136-145)
[2017-03-30 07:34] LABS: CHLORIDE 117 mmol/L (98-107)
[2017-03-30 08:09] LABS: BAND NEUTROPHILS % 16 % (0-10); PLATELET MORPHOLOGY COMMENT NORMAL (NORMAL)
[2017-03-30] MEDS: LEVAQUIN PREMIX IV 750 MG 750 MG/150 ML BAG IV SCH (09:34)
[2017-03-30] MEDS: ALBUMIN HUMAN 25%- 100ML 100 ML IV SCH (09:35)
[2017-03-30] MEDS: TOPAMAX TAB 100 MG PO SCH ×2 (09:36→21:30)
[2017-03-30] MEDS: NYSTATIN POWDER TOP SCH ×2 (09:37→21:34)
[2017-03-30] MEDS: FOLIC ACID TAB 1 MG PO SCH (09:37)
[2017-03-30] MEDS: KEPPRA TAB 500 MG PO SCH ×2 (09:37→21:30)
[2017-03-30] MEDS: TEMOVATE SOLN TOP SCH ×2 (09:39→21:35)
[2017-03-30] MEDS: DEPAKOTE ER PO SCH ×2 (09:41→21:30)
[2017-03-30] MEDS ORDERED: DEPAKOTE D.R. TAB PO ONE (11:05)
--- NOTE | 2017-03-30 18:39 | PCM.PROG ---
Progress Note - Progress Note for Day of Date: 03/30/17 - Subjective Subjective: SCROTAL CELLULITIS IS SLOWLY IMPROVING. SCROTUM CONTINUES WITH WARMTH, ERYTHEMA, AND EDEMA. PATIENT REPORTS PAIN TO AREA. FAMILY MEMBER AT BEDSIDE. HEART RATE HAS BEEN IN THE 40'S AND TOPROL HAS BEEN HELD. PATIENT CONTINUES ON IV FORTAZ AND LEVAQUIN FOR SCROTAL CELLULITIS. FINAL URINE CULTURE REPORTS E-COLI WHICH IS SENSITIVE TO FORTAZ. CBC WNL EXCEPT: WBC 10.3, H/H 10.0/28.9, PLT COUNT 68. CMP WNL EXCEPT: SODIUM 147, CHL 117, GLUCOSE 125, TOT PROTEIN 5.0, ALBUMIN 2.1. WE WILL CONTINUE ALBUMIN IV, LEVAQUIN, SOLUMEDROL , TEMOVATE, AND EUCERIN. WE WILL CONTINUE TO MONITOR CELLULITIS AND FOLLOW UP IN AM WITH LABS. - Past Medical Family Social History Past Med/Fam/Surg Hx: No changes since H&P Allergies: Allergies Aspirin Allergy (Verified 07/28/12 13:16) Caffeine Allergy (Verified 07/28/12 13:16) - Review of Systems ROS: No change since H&P - Vital Signs and I&O's Vital Signs: Temperature 97.9 F Pulse Rate [Apical] 41 Pulse Rate [Right Radial] 50 Respiratory Rate 18 Blood Pressure [Left Arm] 86/54 Blood Pressure [Right Arm] 88/59 O2 Sat by Pulse Oximetry 94 Intake and Output: Intake & Output 03/28/17 03/29/17 03/30/17 03/31/17 11:59 11:59 11:59 11:59 Intake Total 1240 1480 4498 1397 Output Total 900 2450 2200 1000 Balance 340 -970 2298 397 - Physical Exam Oriented: Person Eyes: Normal. negative: Blurred Vision, Diplopia, Discharge, Pain, Redness, Photophobia Ear: Normal. negative: Swelling, Ecchymosis, Abrasion, Laceration Nose: Normal. negative: Injected, Discharge, Blood Throat: Normal. negative: Tonsillar Hypertrophy, Red, Exudate Respiratory: Normal Cardiovascular: Normal. negative: Murmur, Edema : Dysuria, Frequency, Testicular Pain (Scrotal Cellulitis), Other ([place]). negative: Hematuria Auscultation: Bowel Sounds: Decreased. negative: Bruit Palpation: Normal Tenderness: Normal. negative: Rebound, Guarding, Rigidity Skin: Decreased Turgur. negative: Wound, Bruising, Ecchymosis Musculoskeletal: Instability Psychiatric: Other (Confusion) Mood Description: Calm Speech Pattern: Appropriate, Unclear - Laboratory and Diagnostics Result Diagrams: 03/30/17 04:20 03/30/17 04:20 Labs: Laboratory WBC 10.3 X10^3/uL (3.6-10.0) H 03/30/17 04:20 RBC 3.03 X10^6/uL (4.7-6.0) L 03/30/17 04:20 Hgb 10.0 g/dL (13.5-18.0) L 03/30/17 04:20 Hct 28.9 % (42.0-54.0) L 03/30/17 04:20 MCV 95.6 fL (80.0-100.0) 03/30/17 04:20 MCH 33.1 pg (27.0-34.0) 03/30/17 04:20 MCHC 34.6 g/dL (33.0-35.0) 03/30/17 04:20 RDW 14.3 % (11.6-16.5) 03/30/17 04:20 Plt Count 68 X10^3/uL (150.0-450.0) L 03/30/17 04:20 Plt Count Comment Decreased (ADEQUATE) 03/30/17 04:20 MPV 8.9 fL (7.4-11.0) 03/30/17 04:20 Neut % 82.6 % (42.0-75.0) H 03/30/17 04:20 Lymph % 11.6 % (21.0-51.0) L 03/30/17 04:20 [place] % 5.4 % (0.0-13.0) 03/30/17 04:20 Eos % 0.0 % (0.9-2.9) L 03/30/17 04:20 Baso % 0.4 % (0.2-1.0) 03/30/17 04:20 Neut # 8.5 x10^3/uL (2.2-4.8) H 03/30/17 04:20 Lymph # 1.2 X10^3/uL (1.3-2.9) L 03/30/17 04:20 [place] # 0.6 x10^3/uL (0.3-0.8) 03/30/17 04:20 Eos # 0.0 x10^3/uL (0.0-0.2) 03/30/17 04:20 Baso # 0.0 X10^3/uL (0.0-0.1) 03/30/17 04:20 Absolute Nucleated RBC 0.2 /100WBC 03/30/17 04:20 Total Counted 100 03/30/17 04:20 Neutrophils % (Manual) 64 % (39-76) 03/30/17 04:20 Band Neutrophils % 16 % (0-10) H 03/30/17 04:20 Lymphocytes % (Manual) 20 % (13-43) 03/30/17 04:20 Monocytes % (Manual) 1 % (4-9) L 03/29/17 05:04 Atypical Lymphocytes Noted 03/27/17 13:00 Plt Morphology Comment Normal (NORMAL) 03/30/17 04:20 RBC Morphology Normal (NORMAL) 03/30/17 04:20 Sodium 147 mmol/L (136-145) H 03/30/17 04:20 Corrected Sodium 148 mmol/L (136-145) H 03/30/17 04:20 Potassium 3.9 mmol/L (3.5-5.1) 03/30/17 04:20 Chloride 117 mmol/L (98-107) H* 03/30/17 04:20 Carbon Dioxide 21.0 mmol/L (21-32) 03/30/17 04:20 BUN 8 mg/dL (7-18) 03/30/17 04:20 Creatinine 0.78 mg/dL (0.70-1.30) 03/30/17 04:20 Est GFR (MDRD) Af Amer > 60 (>60) 03/30/17 04:20 Est GFR (MDRD) Non-Af > 60 (>60) 03/30/17 04:20 Glucose 125 mg/dL (65-99) H 03/30/17 04:20 Lactic Acid 1.8 mmol/L (0.4-2.0) 03/27/17 13:40 Calcium 8.2 mg/dL (8.5-10.1) L 03/30/17 04:20 Corrected Calcium 9.7 mg/dL (8.5-10.1) 03/30/17 04:20 Total Bilirubin 0.10 mg/dL (0.2-1.0) L 03/30/17 04:20 AST 11 Units/L (15-37) L 03/30/17 04:20 ALT 9 Units/L (12-78) L 03/30/17 04:20 Alkaline Phosphatase 56 Units/L (46-116) 03/30/17 04:20 Creatine Kinase 177 Units/L (39-308) 03/27/17 13:00 CK-MB (CK-2) 1.6 ng/mL (0-4.0) 03/27/17 13:00 CK/CKMB % Calc 0.9 % (<4) 03/27/17 13:00 Troponin I < 0.02 ng/mL (0-1.5) 03/27/17 13:00 Total Protein 5.0 g/dL (6.4-8.2) L 03/30/17 04:20 Albumin 2.1 g/dL (3.4-5.0) L 03/30/17 04:20 Globulin 2.9 g/dL (2.5-4.5) 03/30/17 04:20 Albumin/Globulin Ratio 0.7 Ratio (1.1-2.1) L 03/30/17 04:20 Specimen Type Catherized urine 03/27/17 15:28 Urine Color [place] (YELLOW) 03/27/17 15:28 Urine Appearance Slightly hazy (CLEAR) 03/27/17 15:28 Urine RBC 50-55 /HPF (NEGATIVE) 03/27/17 15:28 Urine WBC 12-16 /HPF (NEGATIVE) 03/27/17 15:28 Ur Squamous Epith Cells Few /HPF (NEGATIVE) 03/27/17 15:28 Ur Renal Epithelial Cell Few /HPF (NEGATIVE) 03/27/17 15:28 Amorphous Sediment Trace /HPF (NEGATIVE) 03/27/17 15:28 Urine Bacteria Trace /HPF (Negative) 03/27/17 15:28 Hyaline Casts Moderate /LPF (NEGATIVE) 03/27/17 15:28 Micro UA Comment Unable to perform (-) 03/27/17 15:28 Influenza A (H1N1) PCR Not detected (NOT DETECT) 03/27/17 14:30 Influenza Type A (PCR) Negative (NEGATIVE) 03/27/17 14:30 Influenza Type B (PCR) Negative (NEGATIVE) 03/27/17 14:30 - Plan (1) Hematocele Status: Acute Plan: CONTINUE IV LEVAQUIN, FORTAZ, SOLUMEDROL, CONTINUE TO MONITOR. (2) Cellulitis of scrotum Status: Acute Plan: CONTINUE IV FORTAZ, LEVAQUIN, CONTINUE VENTURA CATHETER, MONITOR CELLULITIS. (3) Altered mental status Status: Acute Qualifiers: Altered mental status type: transient alteration of awareness Coma depth: C Coma timing: C Qualified Code(s): R40.4 - Transient alteration of awareness Plan: CONTINUE IV FLUIDS, CONTINUE TO MONITOR. (4) Leukocytosis Status: Acute Qualifiers: Leukocytosis type: other Qualified Code(s): D72.828 - Other elevated white blood cell count Plan: CONTINUE IV FLUIDS, IV FORTAZ, MONITOR. (5) E. coli UTI Status: Acute Plan: CONTINUE FORTAZ, MONITOR. (6) UTI (urinary tract infection) Status: Acute Qualifiers: Urinary tract infection type: site unspecified Hematuria presence: without hematuria Indwelling urinary catheter type: I Encounter type: E Qualified Code(s): N39.0 - Urinary tract infection, site not specified Plan: ABOVE. (7) Hypertension Status: Chronic Qualifiers: Hypertension type: essential hypertension Qualified Code(s): I10 - Essential (primary) hypertension (8) Seizures Status: Chronic (9) GERD (gastroesophageal reflux disease) Status: Chronic Qualifiers: Esophagitis presence: esophagitis presence not specified Qualified Code(s) : K21.9 - Gastro-esophageal reflux disease without esophagitis
[2017-03-31] MEDS: NS 1000 ML 1,000 ML IV SCH (05:46)
[2017-03-31] MEDS: SOLU-Medrol 40 MG VIAL IVP SCH (05:47)
[2017-03-31] MEDS: FORTAZ or TAZICEF INJ 1 GM in NS 50 ML IV + SPIKE MINIBAG* 50 ML IV SCH (05:47)
[2017-03-31 05:53] LABS: ALANINE AMINOTRANSFERASE 13 Units/L (12-78); ALBUMIN 2.2 g/dL (3.4-5.0); ALKALINE PHOSPHATASE 41 Units/L (46-116); ASPARTATE AMINO TRANSFERASE 10 Units/L (15-37); BLOOD UREA NITROGEN 11 mg/dL (7-18); CALCIUM 8.1 mg/dL (8.5-10.1); CARBON DIOXIDE 23.8 mmol/L (21-32); COR CA(FOR HYPOALB) 9.5 mg/dL (8.5-10.1); CREATININE 0.77 mg/dL (0.70-1.30); GLUCOSE 97 mg/dL (65-99); SODIUM 148 mmol/L (136-145); TOTAL PROTEIN 4.9 g/dL (6.4-8.2); eGFR BLACK RACES > 60 (>60); eGFR NON BLACK RACES > 60 (>60)
[2017-03-31 05:54] LABS: CHLORIDE 116 mmol/L (98-107)
[2017-03-31 06:12] LABS: BASOPHILS % (AUTO) 0.3 % (0.2-1.0); HEMATOCRIT 31.9 % (42.0-54.0); HEMOGLOBIN 10.9 g/dL (13.5-18.0); LYMPHOCYTES # (AUTO) 1.6 X10^3/uL (1.3-2.9); LYMPHOCYTES % (AUTO) 20.8 % (21.0-51.0); MEAN CORPUSCULAR HEMOGLOBIN 32.6 pg (27.0-34.0); MEAN CORPUSCULAR HGB CONC 34.1 g/dL (33.0-35.0); MEAN CORPUSCULAR VOLUME 95.6 fL (80.0-100.0); MEAN PLATELET VOLUME 8.9 fL (7.4-11.0); MONOCYTES # (AUTO) 0.4 x10^3/uL (0.3-0.8); MONOCYTES % (AUTO) 4.8 % (0.0-13.0); NEUTROPHILS # (AUTO) 5.6 x10^3/uL (2.2-4.8); NEUTROPHILS % (AUTO) 74.1 % (42.0-75.0); PLATELET COUNT 83 X10^3/uL (150.0-450.0); RED BLOOD COUNT 3.33 X10^6/uL (4.7-6.0); RED CELL DISTRIBUTION WIDTH 14.2 % (11.6-16.5); WHITE BLOOD COUNT 7.6 X10^3/uL (3.6-10.0)
[2017-03-31 06:54] LABS: BAND NEUTROPHILS % 9 % (0-10); PLATELET MORPHOLOGY COMMENT NORMAL (NORMAL)
[2017-03-31] MEDS: DEPAKOTE ER PO SCH (08:27)
[2017-03-31] MEDS: FOLIC ACID TAB 1 MG PO SCH (08:27)
[2017-03-31] MEDS: KEPPRA TAB 500 MG PO SCH (08:27)
[2017-03-31] MEDS: ALBUMIN HUMAN 25%- 100ML 100 ML IV SCH (08:28)
[2017-03-31] MEDS: TOPAMAX TAB 100 MG PO SCH (08:28)
[2017-03-31] MEDS: LEVAQUIN PREMIX IV 750 MG 750 MG/150 ML BAG IV SCH (08:28)
[2017-03-31 08:41] VITALS: BP 89/54
== END 2017-03-31 12:45 | disposition home or self-care (01) | DRG 728 ==
LOC: ER 12:30 → MED/SURG 16:25 → OBS 16:51 → MED/SURG 17:00
PROVIDERS: ADMIT Internal Medicine; ATTEND Internal Medicine
DX: N49.2 Inflammatory disorders of scrotum (principal); N50.1 Vascular disorders of male genital organs; N39.0 Urinary tract infection, site not specified; R51 Headache; R40.4 Transient alteration of awareness; D72.828 Other elevated white blood cell count; R94.31 Abnormal electrocardiogram [ECG] [EKG]; R53.1 Weakness; I10 Essential (primary) hypertension; R06.02 Shortness of breath; W06.XXXA Fall from bed, initial encounter; Y92.092 Bedroom in other non-institutional residence as the place of occurrence of the external cause; K21.9 Gastro-esophageal reflux disease without esophagitis; G40.89 Other seizures; B96.29 Other Escherichia coli [E. coli] as the cause of diseases classified elsewhere; R26.89 Other abnormalities of gait and mobility
CPT/HCPCS: 36415; 51702; 70450; 71010; 76870; 80053; 81015; 82550; 82553; 83605; 84132; 84484; 85025; 87040; 87086; 87088; 87186; 87502; 87503; 93005; 93010; 94760; 96365; 96367; 97535; 99284; A4222; P9047; J0713; J1956; J2405; J2920

== ENCOUNTER 2018-02-02 09:52 | Emergency (ER) | payer MEDICAID ==
[2018-02-02 10:02] VITALS: BMI 25.7
--- NOTE | 2018-02-02 10:19 | DR.GENAD ---
HPI - PCP Primary Care Physician: beltran - HPI Comment HPI Comment: PATIENT IS ALSO HAVING DECREASE URINE OUTPUT AND GOING TO BATH ROOM A LOT. NO FEVER. - Complaint/Symptoms Chief Complaint Doctors Comments: FELL AND INJURED PELVIS, HEAD AND LOWER BACK. ALSO RT CHEST AND RIB PAIN. PATIENT IS MENTALLY CHALLENGE. Chief Complaint:: patient aged or disabled carer stated he fell yesterday while fishing and has been falling several times latley and today he has been c/o mid back pain and right rib pain - Nurses notes reviewed Nurses Notes Review: Yes - Source History Provided: Guardian - Mode of Arrival Mode of Arrival: Wheelchair - Timing Onset of Chief Complaint: 02/01/18 Came on: Suddenly - Duration Duration: Constant Duration: Days - Severity Severity: Moderate PMH - PMH Past Medical History: Yes Past Medical History: Anxiety, GERD, Hypertension, Seizures Past Surgical History: Yes Surgical History: Unknown - Family History History of Family Medical Conditions: Yes Family Medical History: Cancer, Coronary Artery Disease - Social History Does patient currently use any type of tobacco product: No Have you used tobacco products in the last 12 months: No Type of Tobacco Use: None Does any household member use tobacco: No Alcohol Use: None Do you use any recreational Drugs:: No Lives With: Family Lives Where: Home - infectious screening In the last 2 months have you had wt loss of >10#?: NO Have you had fever, night sweats or hemotysis?: No Have you traveled outside the country in the last 6 months?: No Isolation: Standard ROS - Review of Systems Constitutional: Fever Eyes: No Symptoms Reported ENTM: No Symptoms Reported Respiratoy: No Symptoms Reported Cardiovascular: No Symptoms Reported Gastrointestinal/Abdominal: No Symptoms Reported Genitourinary: No Symptoms Reported Neurological: Other ([place].) Musculoskeletal: Back Pain, Rib(s), Back Integumentary: No Symptoms Reported Hematologic/Lymphatic: No Symptoms Reported Endocrine: No Symptoms Reported All Other Systems: Reviewed and Negative PE - Vital Signs Vitals: Temperature 99.0 F Pulse Rate 62 Respiratory Rate 18 Blood Pressure [Left Arm] 86/54 Blood Pressure [Right Arm] 89/54 Blood Pressure 118/78 O2 Sat by Pulse Oximetry 98 - General Limitations: Other (MR) General Appearance: Alert - Head Head Exam: Normal Inspection - Eyes Eye exam: Normal Appearance - ENT ENT Exam: Normal External Ear Exam External Ear Exam: Normal External Inspection TM/Canal Exam: Bilateral Normal Nose Exam: Normal Nose Exam Mouth Exam: Normal Inspection Throat Exam: Normal Inspection - Neck Neck Exam: Normal Inspection - Chest Chest Inspection: Symmetric Chest Wall Rise - Respiratory Respiratory Exam: Normal Lung Sounds Bilat Respiratory Exam: Bilateral Clear to Auscultation - Cardiovascular Cardiovascular Exam: Regular Rate, Normal Rhythm, Normal Heart Sounds - Abdominal Exam Abdominal Exam: Normal Bowel Sounds, Soft. negative: Distention - Extremities Extremities Exam: Normal Inspection - Back Back Exam: Tenderness, (R) CVA Tenderness, Paraspinal Tenderness (RT ) - Neurologic Neurological Exam: Alert - Psychiatric Psychiatric Exam: Anxious - Skin Skin Exam: Normal Color MDM - Additional Information Additional Information Obtained From: Rd Mechanical Engineer - Differential Diagnosis Differential Diagnosis: MULTIPLE CONTUSION, PELVIC AND BACK PAIN, UTI, SEPSIS, CVA Course - Treatment Treatment: SEE ORDERS. IN FLUIDS AND IV ROCEPHIN IN ED. - Reevaluation 1st: Improved - Consultation Consultation Comments: DR. TYSON WILL ADMIT PATIENT. - Education/Counseling Education/Counseling: Patient, Family, Education Educated On: Treatment, Diagnosis, Needs for Follow Up ROR - Labs Reviewed Laboratory Results Reviewed?: Yes Result Diagrams: 02/03/18 05:08 02/03/18 05:08 Laboratory: WBC 8.8 X10^3/uL (3.6-10.0) 02/02/18 10:25 RBC 4.28 X10^6/uL (4.7-6.0) L 02/02/18 10:25 Hgb 14.1 g/dL (13.5-18.0) 02/02/18 10:25 Hct 40.7 % (42.0-54.0) L 02/02/18 10:25 MCV 94.9 fL (80.0-100.0) 02/02/18 10:25 MCH 32.9 pg (27.0-34.0) 02/02/18 10:25 MCHC 34.6 g/dL (33.0-35.0) 02/02/18 10:25 RDW 14.5 % (11.6-16.5) 02/02/18 10:25 Plt Count 64 X10^3/uL (150.0-450.0) L 02/02/18 10:25 MPV 7.5 fL (7.4-11.0) 02/02/18 10:25 Neut % 73.6 % (42.0-75.0) 02/02/18 10:25 Lymph % 9.9 % (21.0-51.0) L 02/02/18 10:25 [place] % 15.8 % (0.0-13.0) H 02/02/18 10:25 Eos % 0.3 % (0.9-2.9) L 02/02/18 10:25 Baso % 0.4 % (0.2-1.0) 02/02/18 10:25 Neut # 6.5 x10^3/uL (2.2-4.8) H 02/02/18 10:25 Lymph # 0.9 X10^3/uL (1.3-2.9) L 02/02/18 10:25 [place] # 1.4 x10^3/uL (0.3-0.8) H 02/02/18 10:25 Eos # 0.0 x10^3/uL (0.0-0.2) 02/02/18 10:25 Baso # 0.0 X10^3/uL (0.0-0.1) 02/02/18 10:25 Absolute Nucleated RBC 0.0 /100WBC 02/02/18 10:25 Sodium 145 mmol/L (136-145) 02/02/18 10:25 Corrected Sodium TNP 02/02/18 10:25 Potassium 4.0 mmol/L (3.5-5.1) 02/02/18 10:25 Chloride 109 mmol/L (98-107) H 02/02/18 10:25 Carbon Dioxide 25.0 mmol/L (21-32) 02/02/18 10:25 BUN 24 mg/dL (7-18) H 02/02/18 10:25 Creatinine 1.12 mg/dL (0.70-1.30) 02/02/18 10:25 Est GFR (MDRD) Af Amer > 60 (>60) 02/02/18 10:25 Est GFR (MDRD) Non-Af > 60 (>60) 02/02/18 10:25 Glucose 92 mg/dL (65-99) 02/02/18 10:25 Lactic Acid 1.5 mmol/L (0.4-2.0) 02/02/18 10:25 Calcium 9.1 mg/dL (8.5-10.1) 02/02/18 10:25 Corrected Calcium TNP 02/02/18 10:25 Total Bilirubin 0.50 mg/dL (0.2-1.0) 02/02/18 10:25 AST 10 Units/L (15-37) L 02/02/18 10:25 ALT 12 Units/L (12-78) 02/02/18 10:25 Alkaline Phosphatase 87 Units/L (46-116) 02/02/18 10:25 Total Protein 7.8 g/dL (6.4-8.2) 02/02/18 10:25 Albumin 3.4 g/dL (3.4-5.0) 02/02/18 10:25 Globulin 4.4 g/dL (2.5-4.5) 02/02/18 10:25 Albumin/Globulin Ratio 0.8 Ratio (1.1-2.1) L 02/02/18 10:25 Specimen Type Random urine 02/02/18 10:36 Urine Color Yellow (YELLOW) 02/02/18 10:36 Urine Appearance Hazy (CLEAR) 02/02/18 10:36 Urine pH 6.0 (5.0 - 8.0) 02/02/18 10:36 Ur Specific [place] 1.015 (1.000-1.030) 02/02/18 10:36 Urine Protein 2+ (NEGATIVE) 02/02/18 10:36 Urine Glucose (UA) Negative (NEGATIVE) 02/02/18 10:36 Urine Ketones Negative (NEGATIVE) 02/02/18 10:36 Urine Occult Blood 4+ (NEGATIVE) 02/02/18 10:36 Urine Nitrite Negative (NEGATIVE) 02/02/18 10:36 Urine Bilirubin 1+ (NEGATIVE) 02/02/18 10:36 Urine Urobilinogen 3+ (NORMAL) 02/02/18 10:36 Ur Leukocyte Esterase 3+ (NEGATIVE) 02/02/18 10:36 Urine RBC 30-40 /HPF (NONE SEEN) 02/02/18 10:36 Urine WBC 10-15 /HPF (NONE SEEN) 02/02/18 10:36 Ur Squamous Epith Cells Rare /HPF (NEGATIVE) 02/02/18 10:36 Urine Bacteria Trace /HPF (NEGATIVE) 02/02/18 10:36 Ur Culture Indicated? No/not indicated 02/02/18 10:36 Monoscreen Positive (NEGATIVE) A 02/02/18 10:25 - XRAY XRAY Interpreted by: Radiologist XRAY Findings: REPORT NOTED - Diagnosis Discharge Problem: Multiple contusions, Mononucleosis, Mental retardation, Frequent falls UTI (urinary tract infection) Qualifiers: Urinary tract infection type: site unspecified Hematuria presence: without hematuria Qualified Code(s): N39.0 - Urinary tract infection, site not specified - Discharge Plan Disposition: ADMITTED INPATIENT Condition: Stable - Follow ups/Referrals - Instructions
[2018-02-02 10:45] LABS: BASOPHILS % (AUTO) 0.4 % (0.2-1.0); EOSINOPHILS % (AUTO) 0.3 % (0.9-2.9); HEMATOCRIT 40.7 % (42.0-54.0); HEMOGLOBIN 14.1 g/dL (13.5-18.0); LYMPHOCYTES # (AUTO) 0.9 X10^3/uL (1.3-2.9); LYMPHOCYTES % (AUTO) 9.9 % (21.0-51.0); MEAN CORPUSCULAR HEMOGLOBIN 32.9 pg (27.0-34.0); MEAN CORPUSCULAR HGB CONC 34.6 g/dL (33.0-35.0); MEAN CORPUSCULAR VOLUME 94.9 fL (80.0-100.0); MEAN PLATELET VOLUME 7.5 fL (7.4-11.0); MONOCYTES # (AUTO) 1.4 x10^3/uL (0.3-0.8); MONOCYTES % (AUTO) 15.8 % (0.0-13.0); NEUTROPHILS # (AUTO) 6.5 x10^3/uL (2.2-4.8); NEUTROPHILS % (AUTO) 73.6 % (42.0-75.0); PLATELET COUNT 64 X10^3/uL (150.0-450.0); RED BLOOD COUNT 4.28 X10^6/uL (4.7-6.0); RED CELL DISTRIBUTION WIDTH 14.5 % (11.6-16.5); WHITE BLOOD COUNT 8.8 X10^3/uL (3.6-10.0)
[2018-02-02 10:46] LABS: BILIRUBIN,URINE 1+ (NEGATIVE); BLOOD/HEMOGLOBIN,URINE 4+ (NEGATIVE); GLUCOSE, URINE NEGATIVE (NEGATIVE); KETONES,URINE NEGATIVE (NEGATIVE); LEUKOCYTE ESTERASE ,URINE 3+ (NEGATIVE); NITRITES,URINE NEGATIVE (NEGATIVE); PROTEIN,URINE 2+ (NEGATIVE); UROBILINOGEN,URINE 3+ (NORMAL)
[2018-02-02 10:55] LABS: APPEARANCE,URINE HAZY (CLEAR); BACTERIA,URINE TRACE /HPF (NEGATIVE); COLOR,URINE YELLOW (YELLOW); RBC,URINE 30-40 /HPF (NONE SEEN); SQUAMOUS EPITHELIAL CELL,UR RARE /HPF (NEGATIVE)
[2018-02-02 10:55] LABS: ALANINE AMINOTRANSFERASE 12 Units/L (12-78); ALBUMIN 3.4 g/dL (3.4-5.0); ALKALINE PHOSPHATASE 87 Units/L (46-116); ASPARTATE AMINO TRANSFERASE 10 Units/L (15-37); BLOOD UREA NITROGEN 24 mg/dL (7-18); CALCIUM 9.1 mg/dL (8.5-10.1); CHLORIDE 109 mmol/L (98-107); CREATININE 1.12 mg/dL (0.70-1.30); SODIUM 145 mmol/L (136-145); TOTAL PROTEIN 7.8 g/dL (6.4-8.2); eGFR BLACK RACES > 60 (>60); eGFR NON BLACK RACES > 60 (>60)
--- NOTE | 2018-02-02 12:03 | CT ---
HISTORY: Multiple falls Study: CT head without contrast Comparison: 03/27/2017 Technique: Axial noncontrast images with coronal and sagittal reformats. Dose reduction procedures we re used with mA/kv adjusted for body size. Findings: The ventricles are normal in size shape and position. There are no areas of abnormal attenuation to s uggest recent or remote CVA, hemorrhage, mass lesion, or extra-axial fluid collection. The visualized sinuses are clear. The calvarium is intact. IMPRESSION: No significant intracranial abnormality identified Reported By:
--- NOTE | 2018-02-02 12:08 | CT ---
HISTORY: Injury, fall, back pain Study: CT lumbar spine without contrast Comparison: None Technique: Axial noncontrast images with coronal and sagittal reformats. Dose reduction procedures we re used with mA/kv adjusted for body size. Findings: The bones are osteopenic. The alignment is normal. Central compressions of the superior endplates of L1 and L5 or identified. The age of these fractures is indeterminate. There is loss of height in T11 also age indeterminate. The pedicles, spinous processes, and posterior elements are intact as are the visualized portions of the sacrum and SI joints. The disc levels are evaluated as follows: T12-L1 level: No evidence for compressive disc disease. The neural foramina are patent. Mild bilatera l facet arthropathy is present. L1-2 level: No evidence for compressive disc disease or compressive spondylitic change the neural for dread are patent. Bilateral facet arthropathy is present. L2-3 level: No evidence for compressive disc disease. The neural foramina are patent. Mild bilateral facet arthropathy is present. L3-4 level: No evidence for compressive disc disease. The neural foramina are patent. The joints are normal. L4-5 level: There is mild circumferential disc bulging which causes minimal thecal sac effacement and contributes along with spondylitic change to lateral recess and foraminal narrowing bilaterally. L5-S1 level: There is a small focal central and leftward disc protrusion which abuts but not displace s the left S1 nerve root. Spondylitic change contributes to severe foraminal narrowing on the left an d mild foraminal narrowing on the right. IMPRESSION: As above Reported By:
--- NOTE | 2018-02-02 12:13 | RAD ---
HISTORY: Injury, fall, pain pelvis Study: AP pelvis Comparison: None Findings: The pelvic bones and SI joints are intact. The hip joints and proximal femurs appear intact IMPRESSION: No significant abnormality identified Reported By:
--- NOTE | 2018-02-02 13:34 | RAD ---
History: Right rib trauma Study: Rib series Findings: Multiple views of the right ribs are compared to a previous chest radiograph of 03/27/2017. Lungs are clear. There mild to moderate spondylitic changes of the thoracic spine. A a stimulating b attery with tiny electrodes extending up the left side of the neck are again noted. No fracture, bony destructive process or deformity of the right ribs is noted. Impression: Normal right ribs. Reported By:
[2018-02-02] MEDS ORDERED: TYLENOL 500 MG TAB EXTRA STRENGTH PO PRN (14:06)
[2018-02-02] MEDS: ROCEPHIN VIAL 1 GM 1 GM in NS 100 ML IV + SPIKE MINIBAG* 100 ML IV SCH (14:36)
[2018-02-02] MEDS ORDERED: NS 100 ML IV + SPIKE MINIBAG* 100 ML IV ONE (14:38)
[2018-02-02] MEDS ORDERED: ROCEPHIN VIAL 1 GM ONE (14:38)
[2018-02-02] MEDS: NS 1000 ML 1,000 ML IV SCH ×2 (14:49→23:30)
[2018-02-02] MEDS ORDERED: DIVALPROEX SODIUM PO SCH (21:00)
[2018-02-02] MEDS ORDERED: TOPIRAMATE PO SCH (21:00)
[2018-02-02] MEDS ORDERED: LEVETIRACETAM PO SCH (21:00)
[2018-02-02] MEDS: TOPAMAX TAB 100 MG PO SCH (21:08)
[2018-02-02] MEDS: KEPPRA TAB 500 MG PO SCH (21:08)
[2018-02-02] MEDS: DEPAKOTE ER PO SCH (21:10)
--- NOTE | 2018-02-02 22:09 | DR.H&P ---
H&P - History & Physical for Day of: H&P Date: 02/02/18 ( ) - Chief Complaint Chief Complaint: BACK PAIN - Allergies Allergies/Adverse Reactions: Allergies Allergy/AdvReac Type Severity Reaction Status Date / Time aspirin Allergy Verified 02/02/18 09:53 caffeine AdvReac Verified 02/02/18 09:53 - History of Present Illness History of Present Illness: IS A 47 YEAR OLD PATIENT OF OURS WHO PRESENTED TO THE EMERGENCY ROOM WITH COMPLAINTS OF MID BACK PAIN AND RIGHT RIB PAIN FOLLOWING A FALL YESTERDAY AND SEVERAL FALLS OVER THE PAST SEVERAL DAYS. PATIENT ALSO REPORTS FEVER. MEDICAL HISTORY INCLUDES SEIZURE DISORDER, GERD, CHRONIC URINARY TRACT INFECTIONS, CHRONIC BACK PAIN, ANXIETY, AND MENTAL RETARDATION. PHYSICAL EXAM REVEALED RIGHT CVA TENDERNESS AND PARASPINAL TENDERNESS, OTHERWISE, NORMAL EXAM. ON ARRIVAL TO THE EMERGENCY ROOM, VITALS WERE 99.0-62-18-98%-118/78. LABS WERE OBTAINED. ABNORMAL LAB VALUES INCLUDE THE FOLLOWING: RBC 4.28, HCT 40.7, CHLORIDE 109, BUN 24, AST 10, VALPROIC ACID 162.7 , MONOSCREEN IS POSITIVE. A URINALYSIS WAS OBTAINED AND REVEALED WBC 10-15, RBC 30-40, OCCULT BLOOD 4+, LEUKOCYTES 3+, BACTERIA TRACE, PROTEIN 2+. BLOOD CULTURES WERE OBTAINED AND ARE PENDING. BRAIN CT WAS OBTAINED AND REVEALED NO SIGNIFICANT INTRACRANIAL ABNORMALITY IDENTIFIED. RIB SERIES OBTAINED NORMAL RIGHT RIBS. A LUMBAR SPINE CT REVEALED MILD CIRCUMFERENTIAL DISC BULTING WHICH CAUSES MINIMAL THECAL SAC EFFACEMNT AND CONTRIBUTES ALONG WITH SPONDYLITIC CHINO TO LATERAL RECESS AND FORAMINAL NARROWING BILATERLLY AT L4-5. AT L5-S1, THERE IS SMALL FOCAL CENTRAL AND LEFTWARD DISC PROTRUSION WHICH ABUTS BUT NOT DISPLACES THE LEFT S1 NERVE ROOT. SPONDYLITIC CHANGE CONTRIBUTES TO SEVERAL FORAMINAL NARROWING ON THE LEFT AND MILD FORAMINAL NARROWING ON THE RIGHT. PELVIS CT NEGATIVE. PATIENT WAS ADMITTED TO THE HOSPITAL FOR FURTHER EVALUATION AND TREAMENT FOR URINARY TRACT INFECTION, ATAXIA, AND FREQUENT FALLS. HE WAS STARTED ON ROCEPHIN 1GM IV DAILY, AND NORMAL SALINE AT 125ML/HR. HIS SEIZURE AND BLOOD PRESSURE MEDICATIONS WERE RESUMED. WE PLAN TO FOLLOW UP WITH AM LABS AND CONTINUE TO MONITOR PATIENT. - Past Medical History Past Medical History: Anxiety, GERD, Hypertension, Seizures Additional Medical History: Vision Deficit, Urinary Tract Infections, Back Pain , Mood Disorders - Past Surgical History Surgical History: Unknown - Family History Family Medical History: Cancer, Coronary Artery Disease - Social History Does patient currently use any type of tobacco product: No Have you used tobacco products in the last 12 months: No Type of Tobacco Use: None Does any household member use tobacco: No Alcohol Use: None Drug Use: None - Physical Exam Vital Signs: Temperature 99.3 F Pulse Rate [Right Brachial] 94 Pulse Rate 62 Respiratory Rate 18 Blood Pressure [Left Arm] 86/54 Blood Pressure [Right Arm] 120/67 Blood Pressure 118/78 O2 Sat by Pulse Oximetry 99
[2018-02-03 05:40] LABS: BASOPHILS % (AUTO) 0.4 % (0.2-1.0); EOSINOPHILS % (AUTO) 0.3 % (0.9-2.9); HEMATOCRIT 30.3 % (42.0-54.0); HEMOGLOBIN 10.6 g/dL (13.5-18.0); LYMPHOCYTES # (AUTO) 2.1 X10^3/uL (1.3-2.9); LYMPHOCYTES % (AUTO) 19.3 % (21.0-51.0); MEAN CORPUSCULAR HEMOGLOBIN 33.2 pg (27.0-34.0); MEAN CORPUSCULAR HGB CONC 35.1 g/dL (33.0-35.0); MEAN CORPUSCULAR VOLUME 94.6 fL (80.0-100.0); MEAN PLATELET VOLUME 8.4 fL (7.4-11.0); MONOCYTES % (AUTO) 17.9 % (0.0-13.0); NEUTROPHILS # (AUTO) 6.8 x10^3/uL (2.2-4.8); NEUTROPHILS % (AUTO) 62.1 % (42.0-75.0); PLATELET COUNT 43 X10^3/uL (150.0-450.0); RED CELL DISTRIBUTION WIDTH 13.9 % (11.6-16.5)
[2018-02-03 05:49] LABS: ALANINE AMINOTRANSFERASE 10 Units/L (12-78); ALBUMIN 2.3 g/dL (3.4-5.0); ALKALINE PHOSPHATASE 56 Units/L (46-116); ASPARTATE AMINO TRANSFERASE < 6 Units/L (15-37); BLOOD UREA NITROGEN 19 mg/dL (7-18); CALCIUM 7.9 mg/dL (8.5-10.1); CARBON DIOXIDE 23.9 mmol/L (21-32); CHLORIDE 110 mmol/L (98-107); COR CA(FOR HYPOALB) 9.3 mg/dL (8.5-10.1); CREATININE 0.85 mg/dL (0.70-1.30); SODIUM 141 mmol/L (136-145); TOTAL PROTEIN 5.6 g/dL (6.4-8.2); eGFR BLACK RACES > 60 (>60); eGFR NON BLACK RACES > 60 (>60)
[2018-02-03 05:56] LABS: PLATELET MORPHOLOGY COMMENT NORMAL (NORMAL)
[2018-02-03] MEDS: NS 1000 ML 1,000 ML IV SCH (06:07)
[2018-02-03] MEDS: KEPPRA TAB 500 MG PO SCH (08:10)
[2018-02-03] MEDS: TOPAMAX TAB 100 MG PO SCH (08:13)
[2018-02-03] MEDS: ROCEPHIN VIAL 1 GM 1 GM in NS 100 ML IV + SPIKE MINIBAG* 100 ML IV SCH (08:13)
[2018-02-03 08:48] VITALS: BP 137/87
[2018-02-03] MEDS ORDERED: TOPROL XL PO SCH (09:00)
[2018-02-03] MEDS: DEPAKOTE ER PO SCH (10:20)
== END 2018-02-03 10:50 | disposition home or self-care (01) ==
LOC: ER 10:06 → MED/SURG 14:50
PROVIDERS: ADMIT Internal Medicine; ATTEND Internal Medicine
DX: N39.0 Urinary tract infection, site not specified (principal); M54.5 Low back pain; R07.89 Other chest pain; Z91.81 History of falling; R29.6 Repeated falls; F78 Other intellectual disabilities; B27.80 Other infectious mononucleosis without complication; T14.8XXA Other injury of unspecified body region, initial encounter; W18.39XA Other fall on same level, initial encounter; K21.9 Gastro-esophageal reflux disease without esophagitis; G40.802 Other epilepsy, not intractable, without status epilepticus
CPT/HCPCS: 36415; 70450; 71111; 72131; 72170; 80053; 80164; 80177; 81001; 83605; 85025; 86308; 87040; 87086; 96365; 96374; 99283; 99284; A4216; A4222; G0378; J0696